=== PATIENT | female | born 1935 | race Caucasian/White ===

== ENCOUNTER 2017-04-03 19:47 | Emergency (ER) | payer MEDICARE, BC ==
[2017-04-03] MEDS ORDERED: MORPHINE SULFATE 5 MG/ML PFS IVP ONE (19:58)
--- NOTE | 2017-04-03 20:02 | Emergency Department Record ---
History of Present Illness - General Chief Complaint: Chest Pain Stated Complaint: CHEST PAIN Time Seen by Provider: 04/03/17 19:52 Source: Patient, Family Mode of Arrival: Wheelchair Limitations: No limitations - History of Present Illness Initial Comments: 81 yo female presents with chest pain that started at 6:50pm while at rest. The pain started in the mid chest. Over the last hour it has increased and is now the upper abdomen as well. No recent similar pain. The pain does not go to the back. No syncope. No vomiting but she is nauseated. She denies a history of CAD. She currently does not have a PCP and her son states she has not seen a doctor in many years. She denies any other recent illness. She states she is generally healthy and she is not aware of any chronic diseases. MD Complaint: Chest pain, Other (abdominal pain) -: Hour(s) (1) Onset: During rest Pain Location: Substernal Pain Radiation: Abdomen Severity: Severe Quality: Aching Consistency: Constant Improves With: Nothing Worsens With: Nothing Anginal Symptoms: Dyspnea Treatments Prior to Arrival: None - Related Data Home Medications Medication Instructions Recorded Confirmed Last Taken Aspirin 81 mg PO NOW #1 tab.chew 11/22/16 Unknown Ergocalciferol (Vitamin D2) 1 tab PO QD tab 11/22/16 Unknown [Vitamin D2] Magnesium Oxide [Magnesium] 250 mg PO tab 11/22/16 Unknown [place]-3 Fatty Acids [Fish Oil] 300 mg PO QD cap 11/22/16 Unknown Allergies Allergy/AdvReac Type Severity Reaction Status Date / Time No Known Allergies Allergy Unverified 11/22/16 13:49 Review of Systems Constitutional: Denies: Chills, Fever, Malaise, Weakness Eyes: Denies: Eye discharge ENT: Denies: Congestion, Ear pain, Epistaxis, Throat pain Respiratory: Reports: Dyspnea. Denies: Cough, Hemoptysis, Stridor, Wheezes Cardiovascular: Reports: As per HPI, Chest pain. Denies: Palpitations, Syncope Endocrine: Denies: Fatigue Gastrointestinal: Reports: As per HPI, Abdominal pain, Nausea. Denies: Diarrhea , Vomiting Genitourinary: Denies: Dysuria, Hematuria Musculoskeletal: Denies: Arthralgia, Back pain, Joint swelling, Myalgia Skin: Denies: Bruising, Change in color, Rash Neurological: Denies: Headache Psychiatric: Denies: Anxiety Hematological/Lymphatic: Denies: Blood Clots, Easy bleeding, Easy bruising, Swollen glands Physical Exam - General General Appearance: Alert, Oriented x3, Cooperative, Other (appears to be anxious due to pain) Limitations: No limitations - Head Head exam: Normal inspection - Eye Eye exam: Normal appearance, PERRL - ENT ENT exam: Normal exam. negative: Mucous membranes moist Ear exam: Normal external inspection Nasal Exam: Normal inspection Mouth exam: Normal external inspection - Neck Neck exam: Normal inspection, Full ROM. negative: Tenderness - Respiratory Respiratory exam: Normal lung sounds bilaterally. negative: Respiratory distress, Rhonchi, Stridor, Wheezes - Cardiovascular Cardiovascular Exam: Regular rate, Normal rhythm, Normal heart sounds Peripheral Pulses: 2+: Radial (R), Radial (L) - GI/Abdominal GI/Abdominal exam: Soft, Tenderness (tender in the epigastric area) - Rectal Rectal exam: Deferred - exam: Deferred - Extremities Extremities exam: Normal inspection, Full ROM, Normal capillary refill. negative: Tenderness - Back Back exam: Reports: Normal inspection, Full ROM. Denies: Muscle spasm, Rash noted, Tenderness - Neurological Neurological exam: Alert, Normal gait, Oriented X3 - Psychiatric Psychiatric exam: Normal affect, Normal mood - Skin Skin exam: Dry, Intact, Normal color, Warm Course - Reevaluation(s) Reevaluation #1: No prior EKG EKG#1 19:52 Likely Afib, rate 80, intervals Qtc 485 and QRS 159 , axis normal, ST no acute elevation or depression, Movement Artifact limitation but no STEMI EKG#2 1954 Likely Afib with PVCs, rate 73, intervals QTc 463, QRS 129, axis normal, ST no acute changes. 04/03/17 19:59 Reevaluation #2: On recheck the pain is mostly gone from the chest and now center in the mid upper abdomen. CTA of the chest and abdomen ordered. 04/03/17 20:16 04/03/17 20:17 Bedside US was completed but very limited due to bowel gas. No definite FF. Aorta poorly visualized. 04/03/17 20:30 CBC reviewed. N acute changes. 04/03/17 20:40 The patient is doing much better. Decline additional pain medication. Lactic Acid 2.7. CR and GFR pending. Plan for CT les. She states very faint pain remains in the lower chest. Most pain is epigastric. Abdomen is soft, non distended with some tenderness in the RUQ. 04/03/17 21:39 Reevaluation #3: BUN/CR is 18 and 1.6 with a GFR of only 33. [facility] GFR cut off is 45 for IV contrast. Will initial CT NC. 04/03/17 20:52 04/03/17 21:39 CT reviewed with the radiologist. She has a distended gallbladder, no FF, no AAA, no obstruction The daughter is now in the ED. She reports the patient has a history of Afib since 2011 and elected not to treat. The family and patient select [facility] [place]. He recommends transfer to [facility] ED, US, Surgery Consult and likely IM admission. [facility] [place] or the ED. He agrees with accepting the transfer for further work up and admission Medical Decision Making - Lab Data Result diagrams: 04/03/17 20:10 04/03/17 20:10 Disposition Disposition: Transfer Clinical Impression: Abdominal pain, Gall bladder pain Chest pain Qualifiers: Chest pain type: unspecified Qualified Code(s): R07.9 - Chest pain, unspecified Disposition: Acute Care Hospital Transfer Transfer To: [facility] Reason For Transfer: Surgery Consult Accepting Physician: Vinny Time Discussed w/Accepting Physician: 21:49 Forms: Patient Portal Access Time of Disposition: 21:49 Quality - Quality Measures Quality Measures: N/A - Blood Pressure Screening View Details: Yes Blood Pressure Classification: Hypertensive Reading Systolic Measurement: 178 Diastolic Measurement: 111 Screening for High Blood Pressure: < First Hypertensive BP, F/U Documented > [ [id number]] First Hypertensive Follow-up Interventions: Referral to alternative/primary care provider.
[2017-04-03] MEDS ORDERED: SODIUM CHLORIDE 0.9% 500 ML IV ONE (20:06)
[2017-04-03] MEDS ORDERED: ONDANSETRON HCL IV 4 MG/2 ML VIAL IVP ONE ×2 (20:15→22:06)
[2017-04-03 20:19] LABS: BASO % 0.6 % (0-6); EOS % 0.8 % (0-6); GRAN % 51.7 % (47-80); HEMATOCRIT 46.3 % (35.0-47.0); HEMOGLOBIN 16.1 gm/dl (11.6-16.0); LYMPH % 41.7 % (16-45); MEAN CELL VOLUME 94.5 fl (81-97); MEAN CORPUSCULAR HGB CONC 34.8 g/dl (32-36); MEAN PLATELET VOLUME 10.5 fl (7.4-10.4); MONO % 5.2 % (0-9); PLATELET COUNT 206 K/uL (130-400); RED CELL DISTRIBUTION WIDTH 12.8 % (11.5-14.5); WHITE BLOOD COUNT W/O DIFF 7.1 K/uL (4.2-12.2)
[2017-04-03 20:20] LABS: MEAN CORPUSCULAR HEMOGLOBIN 32.8 pg (27-33)
[2017-04-03 20:30] LABS: LACTIC ACID 2.7 mmol/L (0.7-2.1)
[2017-04-03 20:32] LABS: INR 1.05; PARTIAL THROMBOPLASTIN TIME 25.7 SECONDS (24.5-39.1); PROTHROMBIN TIME (PATIENT) 11.4 SECONDS (9.5-12.1)
[2017-04-03] MEDS ORDERED: 0.9 % SODIUM CHLORIDE 1,000 ML BAG IV ONE (20:37)
[2017-04-03 20:49] LABS: ALB/GLOB RATIO 1.4 (1.1-1.8); ALBUMIN 4.9 gm/dL (3.5-5.0); BLOOD UREA NITROGEN 18 mg/dL (7-17); CREATININE 1.6 mg/dL (0.52-1.04); EST GLOMERULAR FILTRATION RATE 33 ml/min; GLUCOSE,RANDOM 123 mg/dL (70-110); TOTAL PROTEIN 8.4 gm/dL (6.3-8.2)
[2017-04-03 20:50] LABS: ALKALINE PHOSPHATASE 87 U/L (38-126); ALT/SGPT 28 U/L (9-52); AST/SGOT 29 U/L (14-36); CKMB 1.5 ug/L (0-6); CREATINE PHOSPHOKINASE 48 U/L (30-135); LIPASE 67 U/L (23-300); TROPONIN I < 0.012 ng/mL (0.00-0.034)
[2017-04-03 21:27] LABS: ABO GROUP O; ANTIBODY SCREEN NEGATIVE (NEGATIVE); RH TYPE POSITIVE
--- NOTE | 2017-04-04 08:36 | CT SCAN REPORT ---
EXAM: CT OF THE CHEST WITHOUT CONTRAST HISTORY: CHEST PAIN. TECHNIQUE: Sequential axial images were obtained from the thoracic inlet through the bilateral adrenal glands without intravenous contrast administration. FINDINGS: There is ectasia of the thoracic aorta. There is cardiomegaly without pericardial effusion. There are coronary artery vascular calcifications. No infiltrate or pleural effusion. There is multilevel degenerative change of the thoracic spine. 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 NO PERICARDIAL EFFUSION. JOB NUMBER: [id number] MTDD
--- NOTE | 2017-04-04 08:48 | CT SCAN REPORT ---
EXAM: CT OF THE ABDOMEN WITHOUT CONTRAST HISTORY: ABDOMINAL PAIN. TECHNIQUE: Sequential axial images were obtained from the diaphragms through the iliac crest without intravenous or oral contrast administration. FINDINGS: There is cardiomegaly without pericardial effusion. There appears to be gallbladder distention. No definitive ductal dilatation. The pancreas and spleen appear normal. The adrenal glands and kidneys appear grossly unremarkable. There is vascular calcification. There is a right renal cortical cyst. No evidence for bowel obstruction. Lack of abdominal fat somewhat limits evaluation. IMPRESSION: 1. THE GALLBLADDER APPEARS TO BE DISTENDED. THERE ARE NO GALLSTONES OR DEFINITIVE DUCTAL DILATATION. 2. NO GROSS ABNORMALITIES WITHIN THE BOWEL. LACK OF CONTRAST AND ABDOMINAL FAT LIMITS EVALUATION. 3. CARDIOMEGALY WITHOUT PERICARDIAL EFFUSION. 4. STABLE RIGHT RENAL CYST. JOB NUMBER: [id number] [facility]
== END 2017-04-03 22:15 | disposition short-term general hospital (02) ==
LOC: ER 19:47
DX: K82.8 Other specified diseases of gallbladder (principal); R10.11 Right upper quadrant pain; R07.9 Chest pain, unspecified; R06.00 Dyspnea, unspecified; I48.91 Unspecified atrial fibrillation
CPT/HCPCS: 99285 ×2; 96374; 96375; 82550; 83605; 83690; 85025; 85730; 85610; 82553; 84484; 80053; 86900; 86901; 86850; 74150; 71250; 93005; 93010; J2405; J2270; J7030